=== PATIENT | female | born 1985 | race Caucasian/White ===

== ENCOUNTER 2016-08-20 02:35 | Emergency (ER) | payer SELFPAY ==
[2016-08-20] MEDS ORDERED: methylPREDNISolone NA SUCC 125 MG/2 ML VIAL IVPB ONE (02:57)
[2016-08-20] MEDS ORDERED: ALBUTEROL SO4 2.5/IPRATROPIUM 0.5 INH SOL 3 ML VIAL.NEB. NEB ONE ×2 (02:57→03:20)
[2016-08-20] MEDS ORDERED: SODIUM CHLORIDE 1,000 ML IV STA (02:57)
[2016-08-20] MEDS ORDERED: FAMOTIDINE 20 MG/50 ML IVPB 50 ML IVPB ONE ×2 (02:58→03:20)
--- NOTE | 2016-08-20 03:04 | PDOC ---
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 states symptoms worse at night. 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 Patient c/o chest tightness and trouble breathing. She denies any other complaints. Report no OTC medications use. Associated blood tinge sputum. LNMP: 3 weeks ago. Timing/Duration: reports: getting worse Severity: reports: moderate Episode Description: See HPI Possible Cause: Yes: allergen exposure, illness exposure Modifying Factors: worse with: activity, albuterol inhaler, albuterol nebulizer , antibiotics, coughing, lying down, oxygen, rest, other Associated Symptoms: reports: cough, shortness of breath, wheezing. denies: denies symptoms, chest pain/soreness, dizziness, earache, facial pain, fever/ chills, headache, lightheadedness, muscle aches, nasal congestion, nasal drainage, sinus infection, sore throat, other Past History - Travel Traveled outside of the country in the last 30 days: No Close contact w/someone who was outside of country & ill: No - Past Medical History Allergies/Adverse Reactions: Allergies Allergy/AdvReac Type Severity Reaction Status Date / Time peanut Allergy Verified 05/18/15 14:20 Home Medications: Ambulatory Orders Vit/Iron Fumarate/FA [ Tablet] 1 each PO DAILY 02/06/14 Amoxicillin/Potassium Clav [Augmentin 500-125 Tablet] 1 each PO Q12H #10 tablet 08/20/16 Prednisone 10 mg PO ASDIR #21 tab.ds.pk 08/20/16 - Surgical History Cholecystectomy: Yes - Reproductive History (#): 1 Para: 0 Cervical CA: No Dysfunctional Uterine Bleeding: No Ectopic : No Endometrial CA: No Polycystic Ovaries: No Tubal Ligation: No - Psycho/Social/Smoking Cessation Hx Anxiety: No Suicidal Ideation: No Smoking History: Never smoked Have you smoked in the past 12 months: No Hx Alcohol Use: No Drug/Substance Use Hx: No Substance Use Type: None Respiratory Specific PMHX - Complaint Specific PMHX Angina: No Bronchitis: No Pneumonia: No Pulmonary Embolus: No TB (Tuberculosis): No Review of Systems - Review of Systems Able to Perform ROS?: Yes Is the patient limited Greek proficient: No Constitutional: No: Chills, Fever HEENTM: No: Nose Congestion, Throat Pain Respiratory: Yes: Cough, Shortness of Breath, Wheezing. No: Stridor Cardiac (ROS): Yes: Chest Tightness. No: Chest Pain, Lightheadedness, Palpitations, Syncope ABD/GI: No: Diarrhea, Nausea, Poor Appetite, Poor Fluid Intake, Vomiting : No: Burning, Dysuria, Discharge, Flank Pain, Hematuria Musculoskeletal: No: Back Pain Integumentary: No: Bruising, Dryness, Erythema Neurological: No: Headache All Other Systems: Reviewed and Negative *Physical Exam - Physical Exam General Appearance: Yes: Nourished, Appropriately Dressed, Mild Distress. No: Apparent Distress, Moderate Distress, Severe Distress HEENT: positive: EOMI, CEM, Normal ENT Inspection, Normal Voice, Symmetrical, TMs Normal, Pharynx Normal. negative: Pharyngeal Erythema, Tonsillar Exudate, Tonsillar Erythema, Rhinorrhea, Sinus Tenderness, TM Bulging, TM Dull, TM Erythema Neck: positive: Trachea midline, Supple. negative: Stridor, Lymphadenopathy (R) , Lymphadenopathy (L) Respiratory/Chest: positive: Wheezing. negative: Lungs Clear, Normal Breath Sounds, Respiratory Distress, Accessory Muscle Use, Labored Respiration Cardiovascular: positive: Regular Rhythm, Regular Rate Gastrointestinal/Abdominal: positive: Normal Bowel Sounds, Soft. negative: Distended, Guarding, Rebound, Tenderness Musculoskeletal: positive: Normal Inspection. negative: CVA Tenderness Extremity: positive: Normal Capillary Refill, Normal Inspection, Normal Range of Motion. 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 intact, Fully Oriented, Alert, Normal Mood/ Affect, Normal Response, Motor Strength /5 ED Treatment Course - LABORATORY CBC & Chemistry Diagram: 08/20/16 03:15 08/20/16 03:15 - RADIOLOGY Radiology Studies Ordered: Category Date Time Status CHEST PA & LAT [RAD] Stat Radiology 08/20/16 02:57 Ordered *DC/Admit/Observation/Transfer Diagnosis at time of Disposition: Bronchitis Upper respiratory infection Qualifiers: URI type: unspecified URI Qualified Code(s): J06.9 - Acute upper respiratory infection, unspecified - Discharge Dispostion Disposition: HOME Condition at time of disposition: Improved Admit: No - Prescriptions Prescriptions: Amoxicillin/Potassium Clav [Augmentin 500-125 Tablet] 1 each PO Q12H #10 tablet Prednisone 10 mg PO ASDIR #21 tab.ds.pk - Patient Instructions Printed Discharge Instructions: DI for Viral Upper Respiratory Infection -- Adult, Acute Bronchitis Additional Instructions: FOLLOW UP WITH YOUR DOCTOR NEEDED. CALL TO SCHEDULE APPOINTMENT. TAKE MEDICATIONS PRESCRIBED. RETURN IF SYMPTOMS WORSEN OR ANY CONCERNS FOR FURTHER EVALUATION. Print Language: TURKISH - Post Discharge Activity Work/School Note: Back to Work
[2016-08-20] MEDS ORDERED: methylPREDNISolone NA SUCC 125 MG/2 ML VIAL ONE (03:20)
[2016-08-20 03:24] LABS: BASOPHIL 1.2 % (0-2.0); EOSINOPHIL 13.6 % (0-4.5); MCH 26.3 pg (25.7-33.7); MEAN CELL VOLUME 79.6 fl (80-96); MEAN PLT VOLUME 8.2 fl (7.5-11.1); NEUTROPHILS 42.2 % (42.8-82.8); PLATELET COUNT 311 K/MM3 (134-434); RDW 13.3 % (11.6-15.6); WHITE BLOOD COUNT 10.5 K/mm3 (4.0-10.0)
[2016-08-20 03:45] LABS: ALBUMIN 3.8 g/dl (3.4-5.0); ANION GAP 8 (8-16); BILIRUBIN,TOTAL 0.3 mg/dL (0.2-1.0); CALCIUM 8.6 mg/dL (8.5-10.1); CO2 27 mmol/L (21-32); CREATININE 0.7 mg/dL (0.55-1.02); GLUCOSE,RANDOM 109 mg/dL (74-106); SGOT/AST 20 U/L (15-37); SGPT/ALT 30 U/L (12-78); TOT PROT 7.2 g/dl (6.4-8.2)
[2016-08-20 03:46] VITALS: BMI 50.5
[2016-08-20 03:48] LABS: ALK PHOS 118 U/L (45-117); TROPONIN I < 0.02 ng/ml (0.00-0.05)
[2016-08-20 03:49] LABS: COCKROFT - GAULT 206.5415
[2016-08-20 04:28] LABS: URINE APPEARANCE CLEAR; URINE BILIRUBIN NEGATIVE (NEGATIVE); URINE BLOOD NEGATIVE (NEGATIVE); URINE COLOR COLORLESS; URINE GLUCOSE (UA) NEGATIVE (NEGATIVE); URINE KETONE NEGATIVE (NEGATIVE); URINE LEUK ESTERASE NEGATIVE (NEGATIVE); URINE NITRITE NEGATIVE (NEGATIVE); URINE PROTEIN NEGATIVE (NEGATIVE); URINE UROBILINOGEN NEGATIVE E.U./dl (0.2-1.0)
[2016-08-20] MEDS ORDERED: AMOX TR/POT CLAV 500MG/125MG TABLETS (FP) PO ONE (07:07)
[2016-08-20 07:11] VITALS: BP 109/68; PULSE 92; TEMP 98.3
[2016-08-20] MEDS ORDERED: AMOX TR/POT CLAV 500MG/125MG TABLETS (FP) ONE (07:21)
--- NOTE | 2016-08-20 10:42 | EKG ---
Test Reason : Blood Pressure : / mmHG Vent. Rate : 080 BPM Atrial Rate : 080 BPM P-R Int : 162 ms QRS Dur : 090 ms QT Int : 394 ms P-R-T Axes : 033 014 018 degrees QTc Int : 454 ms NORMAL SINUS RHYTHM NORMAL ECG NO PREVIOUS ECGS AVAILABLE Confirmed by MD GIO, WILDER ([id number]) on 08/20/2016 10:42:11 AM Referred By: Confirmed By:WILDER POWERS MD
== END 2016-08-20 07:45 | disposition home or self-care (01) ==
LOC: JER 02:35
PROC: 3E0F7GC Introduction of Other Therapeutic Substance into Respiratory Tract, Via Natural or Artificial Opening (ICD-10-PCS; principal; 2016-08-20)
PROC: 3E0337Z Introduction of Electrolytic and Water Balance Substance into Peripheral Vein, Percutaneous Approach (ICD-10-PCS; 2016-08-20)
PROC: 3E033GC Introduction of Other Therapeutic Substance into Peripheral Vein, Percutaneous Approach (ICD-10-PCS; 2016-08-20)
PROC: 3E0233Z Introduction of Anti-inflammatory into Muscle, Percutaneous Approach (ICD-10-PCS; 2016-08-20)
DX: J40 Bronchitis, not specified as acute or chronic (principal); J06.9 Acute upper respiratory infection, unspecified
CPT/HCPCS: 36415; 71020-TC; 80053; 81003; 82550; 84484; 84703; 85025; 85379; 93005; 93010; 99283-25

== ENCOUNTER 2020-01-09 10:59 | Emergency (ER) | payer OTHER ==
[2020-01-09 11:12] VITALS: BMI 46.4
--- NOTE | 2020-01-09 11:27 | PDOC ---
Attending Attestation - Resident Resident Name: Meena Montano - ED Attending Attestation I have performed the following: I have examined & evaluated the patient, The case was reviewed & discussed with the resident, I agree w/resident's findings & plan, Exceptions are as noted
[2020-01-09] MEDS ORDERED: FAMOTIDINE 20 MG/50 ML IVPB 20 MG in PREMIX 50 IVPB ONE (11:28)
[2020-01-09] MEDS ORDERED: MAG HYDROX/AL HYDROX/SIMETH -MYLANTA- ORAL SUSPENSION PO ONE (11:28)
--- NOTE | 2020-01-09 11:33 | PDOC ---
History of Present Illness - General Chief Complaint: Nausea/Vomiting Stated Complaint: ABD PAIN/VOMITING Time Seen by Provider: 01/09/20 11:18 History Source: Patient Exam Limitations: No Limitations - History of Present Illness Travel History: No Initial Comments: 01/09/20 11:33 34y F no pmhx presents with complaint of abd pain. Pain started last night primarily in the L lower back, was associated with multiple episodes of vomiting that was yellow/clear, sometimes streaked with blood in nature. She also had 3 episodes of watery stool. She describes the pain is pressure in nature in the L back and is non radiating initially. The pt notes the pain then started to radiate to the epgiastrium and was burning in nature. Pt states she had a burning epigastric pain 8 years ago, but never had the L flank pain before. She has not taken any medications for the pain. She deneies any fever/chills, melena, bpr, cp, sob, hillman, worsening of the pain with exertion, diaphoresis. Social: denies smoking, ivdu, etoh abuse Surgical hx: sp cholecystectomy Past History - Medical History Allergies/Adverse Reactions: Allergies Allergy/AdvReac Type Severity Reaction Status Date / Time peanut Allergy Verified 01/09/20 11:06 Home Medications: Ambulatory Orders Famotidine 20 mg PO DAILY PRN #10 tablet 01/09/20 COPD: No - Surgical History Cholecystectomy: Yes - Reproductive History Is Patient Now?: No (#): 1 Para: 0 Cervical CA: No Dysfunctional Uterine Bleeding: No Ectopic : No Endometrial CA: No Polycystic Ovaries: No Tubal Ligation: No - Psycho-Social/Smoking History Smoking History: Never smoked Have you smoked in the past 12 months: No - Substance Abuse Hx (Audit-C & DAST Scrn) How often the patient has a drink containing alcohol: Monthly or less Number of drinks the patient has on a typical day: 1 or 2 How often the patient has six or more drinks on one occasion: Never Score: In Men: 4 or > Positive; In Women: 3 or > Positive: 1 Screen Result (Pos requires Nsg. Audit-10AR): Negative In the last yr the pt used illegal drug/Rx for NonMed reason: No Score: Yes response is considered Positive: 0 Screen Result (Positive result requires Nsg. DAST-10): Negative Review of Systems - Review of Systems Able to Perform ROS?: Yes Comments:: 01/09/20 11:39 ROS Constitutional - no reported Fever, Chills, HEENT: no reported vision changes, sore throat Respiratory: no reported cough, sob, hemoptysis Cardiac: no reported chest pain, palpitations, light headedness, leg swelling Abd/GI: no reported abd pain, nausea, vomiting, blood per rectum, melena, diarrhea : no reported dysuria, frequency, discharge Musculskelatal - no reported back pain, joint swelling skin - no reported bruising, erythema, rash neurological: no reported headache, numbness, focal weakness, tingling, ataxia, hematologic: no reported easy bruising, easy bleeding *Physical Exam - Vital Signs Last Vital Signs Temp Pulse Resp BP Pulse Ox 98.7 F 73 18 152/90 100 01/09/20 11:06 01/09/20 11:06 01/09/20 11:06 01/09/20 11:06 01/09/20 11:06 - Physical Exam 01/09/20 11:39 Physicial Exam: GENERAL: The patient is awake, alert, and fully oriented, Nontoxic - in no acute distress. HEAD: Normocephalic, atraumatic. EYES: extraocular movements intact, sclera anicteric, conjunctiva clear. ENT: Normal voice, Moist mucous membranes. NECK: Normal range of motion, supple LUNGS: Breath sounds equal, clear to auscultation bilaterally. No wheezes, no rhonchi, no rales. HEART: Regular rate and rhythm, normal S1 and S2 without murmur, rub or gallop. ABDOMEN: Soft, minimal epigastric tenderness, No guarding, no rebound. No CVA tenderness, neg murphies, neg tenderness at mcburnys point EXTREMITIES: Normal range of motion, no edema. NEUROLOGICAL: No facial assymetry, Normal speech, PSYCH: Normal mood, normal affect. SKIN: Warm, Dry, normal turgor, Heart Score/ECG Review - ECG Impressions Comment:: 01/09/20 12:32 Twelve-lead EKG was performed and reviewed by me. There is normal sinus rhythm with a normal rate. rate of 74 The axis is normal. The intervals are normal. There is normal R wave progression There are no ST or T wave abnormalities. Impression: Normal twelve-lead EKG ED Treatment Course - LABORATORY CBC & Chemistry Diagram: 01/09/20 11:30 01/09/20 11:30 Medical Decision Making - Medical Decision Making 01/09/20 11:39 ddx inculdes but not limited to gastritis, kidney stone, pancreatitis, ?consider diverticultis however pt without any tenderness will give pepcid/maalox, will ck labs, ua will reassess 01/09/20 13:43 pts labs reviewed noted for leukocytosis, rest of labs reviewed UA without signs of infection The patient was reassessed and is feeling significantly improved. no abd pain/flank pain. abd reassessed and was soft notnender. will po challenge and reasesss suspect likely gastriitsi - said she ate a large meal of rice/potatoes/meat late last night around 11. 01/09/20 14:19 pt feels improved currently asymptmoatic, tolerated oral intake without return of sypmtoms will give pt antacid will have her fu with PMD return precautiosn were discsused for return of symptoms. I discussed the physical exam findings, ancillary test results and final diagnoses with the patient. I answered all of the patient's questions. The patient was satisfied with the care received and felt comfortable with the di scharge plan and treatment plan. The patient will call their primary care physician within 24 hours to arrange follow-up and will return to the Emergency Department with any new, persistent or worsening symptoms. Discharge - Discharge Information Problems reviewed: Yes Clinical Impression/Diagnosis: Gastritis Qualifiers: Gastritis type: unspecified gastritis Chronicity: acute Gastritis bleeding: without bleeding Qualified Code(s): K29.00 - Acute gastritis without bleeding Condition: Improved Disposition: HOME - Admission No - Follow up/Referral Referrals: Neal Giron [Primary Care Provider] - - Patient Discharge Instructions Patient Printed Discharge Instructions: DI for Gastritis Additional Instructions: Regrese a la gabi de emergencias de inmediato con CUALQUIER sntoma nuevo, persistente o que empeore, incluido cualquier dolor abdominal recurrente, fiebre, escalofros, incapacidad para tolerar la ingesta oral o cualquier otra inquietud. Mantngase alejado del alcohol, los alimentos picantes, la cafena, los alimentos cidos / cidos. [place] maalox si siente ardor para aliviarlo. Contine usando Pepcid cuando tiene simptomas DEBE llamar y hacer un seguimiento con abraham mdico y gastroenterlogo dentro de los 5 potter para camille evaluacin adicional de mary ann sntomas. Abraham visita al departamento de emergencias no est completa sin un seguimiento con abraham mdico para camille reevaluacin. Los resultados se discutieron con usted. Asegrese de que abraham mdico revise los resultados de abraham evaluacin de emergencia. Return to the emergency department immediately with ANY new, persistent or wor sening symptoms including any recurrent abdominal pain, fevers, chills, inability to tolerate oral intake or any other concerns. Stay away from alcohol, spicy foods, caffeine, acidic/sour foods. Take maalox if you have burning for relief. 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 Your emergency department visit is not complete without a followup with your doctor for reevaluation. Results were discussed with you. Please make sure your doctor reviews the results of your emergency evaluation. - Post Discharge Activity
[2020-01-09] MEDS ORDERED: SODIUM CHLORIDE 1,000 ML IV ONE (11:43)
[2020-01-09] MEDS ORDERED: ONDANSETRON 4 MG/2 ML VIAL IVPB ONE (11:43)
[2020-01-09] MEDS ORDERED: MAG HYDROX/AL HYDROX/SIMETH 30 ML UNIT-DOSE CUP ONE (11:44)
[2020-01-09] MEDS ORDERED: FAMOTIDINE 20 MG/50 ML IVPB 20 MG/50 ML MG IVPB ONE (11:44)
--- OUTSIDE RECORDS SUMMARY | 2020-01-09 11:44 | XMS ---
:1985 Author [facility] Support Name Relationship Address Phone SE Unavailable Unavailable Unavailable LUCILLE SERRANO [address] [place] [address] ALLAN WELLER MOTHER [address] [phone] [place] [address] FILOMENA WELLER Unavailable [address] [facility] [place] [address] Re-disclosure Warning The records that you are about to access may contain information from federally- assisted alcohol or drug abuse programs. If such information is present, then the following federally mandated warning applies: This information has been disclosed to you from records protected by federal confidentiality rules (42 CFR part 2). The federal rules prohibit you from making any further disclosure of this information unless further disclosure is expressly permitted by the written consent of the person to whom it pertains or as otherwise permitted by 42 CFR part 2. A general authorization for the release of medical or other information is NOT sufficient for this purpose. The Federal rules restrict any use of the information to criminally investigate or prosecute any alcohol or drug abuse patient.The records that you are about to access may contain highly sensitive health information, the redisclosure of which is protected by Article 27-F of the [facility] Public Health law. If you continue you may haveaccess to information: Regarding HIV / AIDS; Provided by facilities licensed or operated by the [facility] Office of Mental Health; or Provided by the [facility] Office for People With Developmental Disabilities. If such information is present, then the following [facility] mandated warning applies: This information has been disclosed to you from confidential records which are protected by state law. State law prohibits you from making any further disclosure of this information without the specific written consent of the person to whom it pertains, or as otherwise permitted by law. Any unauthorized further disclosure in violation of state law may result in a fine or penitentiary sentence or both. A general authorization for the release of medical or other information is NOT sufficient authorization for further disclosure. Encounters Encounter Providers Location Date Indications Data Source(s ) Outpatient [facility] 11/12/2018 eCW3 ([facility] A28 12:00:00 AM Health Care) EDT - 11/12/2018 12:00:00 AM EDT Insurance Providers Payer name Policy type Policy ID Covered Covered libertarian's Policy P kvng / Coverage libertarian ID relationship to [employer] ormation type [employer] SELF PAY SP INSURANCE Social History Code Duration Value Status Description Data Source(s ) Smoking 11/12/2018 12:00:00 Never Smoker completed Never Smoker e CW3 ([facility]) Smoking 11/12/2018 12:00:00 Never Smoker completed Never Smoker e CW3 ([facility]) Smoking 11/12/2018 12:00:00 Never Smoker completed Never Smoker e CW3 ([facility]) Smoking 11/12/2018 12:00:00 Never Smoker completed Never Smoker e CW3 ([facility]) Smoking 11/12/2018 12:00:00 Never Smoker completed Never Smoker e CW3 ([facility]) Smoking 11/12/2018 12:00:00 Never Smoker completed Never Smoker e CW3 ([facility]) Smoking 11/12/2018 12:00:00 Never Smoker completed Never Smoker e CW3 ([facility]) Smoking 11/12/2018 12:00:00 Never Smoker completed Never Smoker e CW3 ([facility]) Smoking 11/12/2018 12:00:00 Never Smoker completed Never Smoker e CW3 ([facility]) Smoking 11/12/2018 12:00:00 Never Smoker completed Never Smoker e CW3 ([facility]) Smoking 11/12/2018 12:00:00 Never Smoker completed Never Smoker e CW3 ([facility]) Vital Signs ID Date Data Source UNK Name Value Range Interpretation Code Description Data Source(s) Diastolic blood 51 mm[Hg] 51 mm[Hg] eCW3 ([facility]) Systolic blood 105 mm[Hg] 105 mm[Hg] eCW3 ([facility]) Body temperature 97.8 [degF] 97.8 [degF] eCW3 ( [facility]) Heart rate 20 /min 20 /min eCW3 ([facility]) Body mass index 44.94 kg/m2 44.94 kg/m2 eCW3 ( udson (BMI) [Ratio] [facility]) Body weight 234 [lb_av] 234 [lb_av] eCW3 ([facility]) Body height 60.5 [in_i] 60.5 [in_i] eCW3 ([facility])
[2020-01-09 11:52] LABS: BASO % 0.7 % (0-2.0); EOS % 0.3 % (0-4.5); HEMATOCRIT 41.9 % (32.4-45.2); HEMOGLOBIN 14.1 GM/dL (10.7-15.3); LYMPH % 10.9 % (8-40); MCH 27.3 pg (25.7-33.7); MCHC 33.6 g/dl (32.0-36.0); MEAN CELL VOLUME 81.3 fl (80-96); MEAN PLT VOLUME 7.8 fl (7.5-11.1); MONO % 4.5 % (3.8-10.2); NEUT % 83.6 % (42.8-82.8); PLATELET COUNT 343 K/MM3 (134-434); RBC 5.15 M/mm3 (3.60-5.2); RDW 13.1 % (11.6-15.6)
[2020-01-09 12:15] LABS: ALBUMIN 4.2 g/dl (3.4-5.0); BILIRUBIN,TOTAL 0.7 mg/dL (0.2-1); BLOOD UREA NITROGEN 15.4 mg/dL (7-18); CALCIUM 9.2 mg/dL (8.5-10.1); CREATININE 0.8 mg/dL (0.55-1.3)
[2020-01-09] MEDS ORDERED: ACETAMINOPHEN 1000 MG/100 ML VIAL (NON FORMULARY) IVPB ONE (12:53)
[2020-01-09] MEDS ORDERED: METOCLOPRAMIDE HCL INJECTION 10 MG/2 ML VIAL IVPUSH ONE (12:53)
[2020-01-09] MEDS ORDERED: METOCLOPRAMIDE HCL INJECTION 10 MG/2 ML VIAL ONE (12:55)
[2020-01-09] MEDS ORDERED: ACETAMINOPHEN INJECTION 100 ML IVPB ONE (12:56)
[2020-01-09 13:06] LABS: PH,URINE 8.5 (5.0-8.0); URINE APPEARANCE CLOUDY; URINE BILIRUBIN NEGATIVE (NEGATIVE); URINE COLOR YELLOW; URINE GLUCOSE (UA) NEGATIVE (NEGATIVE); URINE KETONE NEGATIVE (NEGATIVE); URINE LEUK ESTERASE NEGATIVE (NEGATIVE); URINE NITRITE NEGATIVE (NEGATIVE); URINE PROTEIN NEGATIVE (NEGATIVE); URINE UROBILINOGEN 0.2 mg/dL (0.2-1.0)
[2020-01-09 13:08] LABS: HCG,QUALITATIVE URINE Negative
[2020-01-09 14:49] VITALS: BP 136/78; PULSE 72; TEMP 98.6
--- NOTE | 2020-01-11 07:07 | EKG ---
Test Reason : Blood Pressure : / mmHG Vent. Rate : 074 BPM Atrial Rate : 074 BPM P-R Int : 170 ms QRS Dur : 082 ms QT Int : 390 ms P-R-T Axes : 012 024 019 degrees QTc Int : 432 ms NORMAL SINUS RHYTHM NORMAL ECG WHEN COMPARED WITH ECG OF 20-AUG-2016 03:23, NO SIGNIFICANT CHANGE WAS FOUND Confirmed by HARLEY BUSBY MD ([id number]) on 01/11/2020 7:07:05 AM Referred By: Confirmed By:HARLEY BUSBY MD
== END 2020-01-09 14:49 | disposition home or self-care (01) ==
LOC: JER 10:59 → SUPCPDRO 10:59 → JER 14:49
PROC: 3E0333Z Introduction of Anti-inflammatory into Peripheral Vein, Percutaneous Approach (ICD-10-PCS; principal; 2020-01-09)
PROC: 3E033GC Introduction of Other Therapeutic Substance into Peripheral Vein, Percutaneous Approach (ICD-10-PCS; 2020-01-09)
PROC: 3E0337Z Introduction of Electrolytic and Water Balance Substance into Peripheral Vein, Percutaneous Approach (ICD-10-PCS; 2020-01-09)
DX: K29.00 Acute gastritis without bleeding (principal)
CPT/HCPCS: 36415; 80053; 81003; 83690; 84703; 85025; 93005; 93010; 99284-25; J0131

== ENCOUNTER 2020-01-10 20:02 | Emergency (ER) | payer OTHER ==
[2020-01-10 20:10] VITALS: BP 157/90; TEMP 98; BMI 52.4
--- OUTSIDE RECORDS SUMMARY | 2020-01-10 20:32 | XMS ---
:1985 Author Organization [facility] Support Name Relationship Address Phone SE, SELF-EMPLOYED Unavailable Unavailable Unavailable SE Unavailable Unavailable Unavailable ZACH, LUCILLE [address] [place] [address] ALLAN WELLER MOTHER [address] [place] [address] ALLAN WELLER Mother [address] [place] [address] FILOMENA WELLER Unavailable [address] [place] [address] Re-disclosure Warning The records that you are [...] is protected by Article 27-F of the [facility] Public Health law. If you continue you may haveaccess to information: Regarding HIV / AIDS; Provided by facilities licensed or operated by the [facility] Office of Mental Health; or Provided by the [facility] Office for People With Developmental Disabilities. If such information is present, then the following [facility] mandated warning applies: This information has been [...] law may result in a fine or fpc sentence or both. A general authorization for the release of medical or other information is NOT sufficient authorization for further disclosure. Encounters Encounter Providers Location Date Indications Data Source(s ) Outpatient [facility] 11/12/2018 eCW3 ([facility] A28 12:00:00 AM Health Care) EDT - 11/12/2018 12:00:00 AM EDT Insurance Providers Payer name Policy type Policy ID Covered Covered democrat's Policy P kvng / Coverage democrat ID relationship to [employer] ormation type mortensen SELF PAY SP INSURANCE Social History Code Duration Value Status Description Data Source(s ) Smoking 11/12/2018 12:00:00 Never Smoker completed Never Smoker e CW3 ([facility]) Smoking 11/12/2018 12:00:00 Never Smoker completed Never Smoker e CW3 ([facility]) Smoking 11/12/2018 12:00:00 Never Smoker completed Never Smoker e CW3 ([facility]) Smoking 11/12/2018 12:00:00 Never Smoker completed Never Smoker e CW3 ([facility]) Smoking 11/12/2018 12:00:00 Never Smoker completed Never Smoker e CW3 ([facility]) Smoking 11/12/2018 12:00:00 Never Smoker completed Never Smoker e CW3 ([facility]) Smoking 11/12/2018 12:00:00 Never Smoker completed Never Smoker e CW3 ([facility]) Smoking 11/12/2018 12:00:00 Never Smoker completed Never Smoker e CW3 ([facility]) Smoking 11/12/2018 12:00:00 Never Smoker completed Never Smoker e CW3 ([facility]) Smoking 11/12/2018 12:00:00 Never Smoker completed Never Smoker e CW3 ([facility]) Smoking 11/12/2018 12:00:00 Never Smoker completed Never Smoker e CW3 ([facility]) Vital Signs ID Date Data Source UNK Name Value Range Interpretation Code Description Data Source(s) Diastolic blood 51 mm[Hg] 51 mm[Hg] eCW3 ([facility]) Systolic blood 105 mm[Hg] 105 mm[Hg] eCW3 ([facility]) Body temperature 97.8 [degF] 97.8 [degF] eCW3 ( [facility]) Heart rate 20 /min 20 /min eCW3 ([facility]) Body mass index 44.94 kg/m2 44.94 kg/m2 eCW3 ([facility] (BMI) [Ratio] [facility]) Body weight 234 [lb_av] 234 [lb_av] eCW3 ([facility]) Body height 60.5 [in_i] 60.5 [in_i] eCW3 ([facility])
--- NOTE | 2020-01-10 20:39 | PDOC ---
History of Present Illness - General History Source: Patient - History of Present Illness Initial Comments: 01/10/20 20:39 34F w/no PMH p/w ongoing N/V abdominal pain, evaluated here for similar symptoms yesterday. She reports 8/10 stabbing L sided flank pain, radiating down towards her LLQ. She denies similar prior episodes. She reports feeling improved yesterday after the medications that she received, but feeling recurrence of pain today alongside multiple episodes nbnb vomiting. She denies any prior urolithiases. She reports chills and cold sweats since yesterday. She denies any fevers, weakness, confusion. <Miller Davis - Last Filed: 01/10/20 23:09> <Sherin Reyes - Last Filed: 01/14/20 09:22> - General Chief Complaint: Pain Stated Complaint: F/UP ABDOMINAL PAIN Time Seen by Provider: 01/10/20 20:35 Past History - Medical History COPD: No GI Disorders: Yes (Gastritis) - Surgical History Cholecystectomy: Yes - Reproductive History Is Patient Now?: No (#): 1 Para: 0 Cervical CA: No Dysfunctional Uterine Bleeding: No Ectopic : No Endometrial CA: No Polycystic Ovaries: No Tubal Ligation: No - Psycho-Social/Smoking History Smoking History: Never smoked Have you smoked in the past 12 months: No - Substance Abuse Hx (Audit-C & DAST Scrn) How often the patient has a drink containing alcohol: Never Score: In Men: 4 or > Positive; In Women: 3 or > Positive: 0 Screen Result (Pos requires Nsg. Audit-10AR): Negative <Miller Davis - Last Filed: 01/10/20 23:09> <Sherin Reyes - Last Filed: 01/14/20 09:22> - Medical History Allergies/Adverse Reactions: Allergies Allergy/AdvReac Type Severity Reaction Status Date / Time peanut Allergy Verified 01/09/20 11:06 Home Medications: Ambulatory Orders Famotidine 20 mg PO DAILY PRN #10 tablet 01/09/20 Ibuprofen [Motrin -] 600 mg PO TID #21 tablet 01/10/20 Tamsulosin HCl [Flomax] 0.4 mg PO DAILY 7 Days #7 cap.er.24h 01/10/20 Review of Systems - Review of Systems Able to Perform ROS?: Yes Comments:: 01/10/20 21:33 GENERAL/CONSTITUTIONAL: Chills. No fever. No weakness. HEAD, EYES, EARS, NOSE AND THROAT: No change in vision. No ear pain or discharge. No sore throat. CARDIOVASCULAR: No chest pain or shortness of breath RESPIRATORY: No cough, wheezing, or hemoptysis. GASTROINTESTINAL: Nausea, vomiting, abdominal pain. No diarrhea or constipation. GENITOURINARY: No dysuria, frequency, or change in urination. MUSCULOSKELETAL: No joint or muscle swelling or pain. No neck or back pain. SKIN: No rash NEUROLOGIC: No headache, vertigo, loss of consciousness, or change in strength/sensation. ENDOCRINE: No increased thirst. No abnormal weight change HEMATOLOGIC/LYMPHATIC: No anemia, easy bleeding, or history of blood clots. ALLERGIC/IMMUNOLOGIC: No hives or skin allergy. <Miller Davis - Last Filed: 01/10/20 23:09> *Physical Exam - Vital Signs Last Vital Signs Temp Pulse Resp BP Pulse Ox 98.0 F 75 20 157/90 97 01/10/20 20:07 01/10/20 20:07 01/10/20 20:07 01/10/20 20:07 01/10/20 20:07 - Physical Exam 01/10/20 21:34 GENERAL: Grimacing. Awake, alert, and fully oriented HEAD: No signs of trauma, normocephalic, atraumatic EYES: PERRLA, EOMI, sclera anicteric, conjunctiva clear ENT: Auricles normal inspection, hearing grossly normal, nares patent, oropharynx clear without exudates. Moist mucosa NECK: Normal ROM, supple, no lymphadenopathy, JVD, or masses LUNGS: No distress, speaks full sentences, clear to auscultation bilaterally HEART: Regular rate and rhythm, normal S1 and S2, no murmurs, rubs or gallops, peripheral pulses normal and equal bilaterally. ABDOMEN: L CVA tenderness. Soft, nontender, normoactive bowel sounds. No guarding, no rebound. No masses EXTREMITIES : Normal inspection, Normal range of motion, no edema. No clubbing or cyanosis NEUROLOGICAL: Cranial nerves II through XII grossly intact. Normal speech, normal gait, no focal sensorimotor deficits SKIN: Warm, Dry, normal turgor, no rashes or lesions noted <SusanMiller - Last Filed: 01/10/20 23:09> - Vital Signs Last Vital Signs Temp Pulse Resp BP Pulse Ox 98.0 F 86 20 157/90 98 01/10/20 20:07 01/11/20 00:01 01/10/20 20:07 01/10/20 20:07 01/11/20 00:01 <Sherin Reyesariela - Last Filed: 01/14/20 09:22> ED Treatment Course - LABORATORY CBC & Chemistry Diagram: 01/10/20 21:24 01/10/20 21:25 <Miller Davis - Last Filed: 01/10/20 23:09> - LABORATORY CBC & Chemistry Diagram: 01/10/20 21:24 01/10/20 21:25 - ADDITIONAL ORDERS Additional order review: 01/10/20 21:24 RBC 4.85 MCV 81.9 MCHC 33.7 RDW 13.3 MPV 8.2 Neutrophils % 66.4 D Lymphocytes % 24.2 D Monocytes % 5.3 Eosinophils % 2.6 D Basophils % 1.5 - Medications Given in the ED: ED Medications Discontinued Medications Generic Name Dose Route Start Last Admin Trade Name Winnie PRN Reason Stop Dose Admin Acetaminophen 650 mg 01/10/20 23:19 01/10/20 23:54 Tylenol - PO 01/10/20 23:20 650 mg ONCE ONE Administration Famotidine/Sodium Chloride 20 mg in 50 mls @ 100 mls/hr 01/10/20 20:57 01/10/20 21:57 Pepcid 20 Mg Premixed Ivpb - IVPB 01/10/20 21:26 100 mls/hr ONCE ONE Administration Ketorolac Tromethamine 15 mg 01/10/20 20:57 01/10/20 21:57 Toradol Injection - IVPUSH 01/10/20 20:58 15 mg ONCE ONE Administration Lactated Ringer's 1,000 ml 01/10/20 20:57 01/10/20 21:57 Lactated Ringers Solution IV 01/10/20 20:58 1,000 ml NOW ONE Administration Ondansetron HCl 4 mg 01/10/20 20:57 01/10/20 21:58 Zofran Injection IVPB 01/10/20 20:58 4 mg ONCE ONE Administration <Sherin Reyes - Last Filed: 01/14/20 09:22> Medical Decision Making - Medical Decision Making 01/10/20 21:34 34F w/no PMH p/w acute onset N/V/Flank pain w/L CVA tenderness. Ddx urolithiasis, given stabbing flank pain, nausea, vomiting. Gastritis possible given resolution with medication yesterday, although recurrence of similar symptoms may suggest other etiology. Plan: CBC CMP Lipase UA Urine culture POCUS Renal US 1L LR Zofran Pepcid Spiral CT pending POCUS Dispo: Pending labs, imaging --- POCUS Renal - notable for L sided hydronephrosis Plan for spiral CT to eval for urolithiasis <Miller Davis - Last Filed: 01/10/20 23:09> Discharge - Discharge Information Problems reviewed: Yes - Admission No <Miller Davis - Last Filed: 01/10/20 23:09> - Discharge Information Problems reviewed: Yes <Sherin Reyes - Last Filed: 01/14/20 09:22> - Discharge Information Clinical Impression/Diagnosis: Kidney stone Condition: Stable Disposition: HOME - Additional Discharge Information Prescriptions: Tamsulosin HCl [Flomax] 0.4 mg PO DAILY 7 Days #7 cap.er.24h Ibuprofen [Motrin -] 600 mg PO TID #21 tablet - Follow up/Referral Referrals: Jason Heck MD [Staff Physician] - Gene Monreal MD [Non Staff, Medical] - Pj Levin MD [Staff Physician] - - Patient Discharge Instructions Patient Printed Discharge Instructions: DI for Kidney Stones Additional Instructions: Your CT results were significant for obstructed stones and swelling of collecting system, Drink plenty of water/fluids, avoid caffeine or alcohol Strain all urine for the next 1-2 days and save any stone for analysis Ibuprofen/naproxen/acetaminophen as needed for fund-ul-hlykgnbd pain. Use Motrin (also called Ibuprofen or Advil) 400 mg every 6 hours as needed for pain. If you have any stomach discomfort while taking Motrin, you can use TUMS to help. Oxycodone every 6 hours as needed for severe pain; Please do not drive or operate heavy machinery while on this medication because it can impair your judgement. This is a very addictive medication, do not take it unless you absolutely have to. Return to ER if you experience persistent pain/vomiting/fever/dehydration, difficulty urinating or inability to tolerate oral intake. Follow-up with your primary doctor within the next 2-3 days. Urologist follow up this week, referral given as well. (we will give you a list of urologists, but make sure they accept your insurance). Please bring your labs and imaging with you to your appointment. Print Language: FAROESE
[2020-01-10] MEDS ORDERED: LACTATED RINGERS SOLUTION 1000 ML INFUS.BAG IV ONE (20:57)
[2020-01-10] MEDS ORDERED: ONDANSETRON 4 MG/2 ML VIAL IVPB ONE (20:57)
[2020-01-10] MEDS ORDERED: FAMOTIDINE 20 MG/50 ML IVPB 20 MG/50 ML MG IVPB ONE ×2 (20:57→21:39)
[2020-01-10] MEDS ORDERED: KETOROLAC TROMETHAMINE 15 MG/ML VIAL IVPUSH ONE (20:57)
--- NOTE | 2020-01-10 21:29 | PDOC ---
Attending Attestation - Resident Resident Name: Miller Davis - ED Attending Attestation I have performed the following: I have examined & evaluated the patient, The case was reviewed & discussed with the resident, I agree w/resident's findings & plan - HPI HPI: 01/10/20 21:30 34-year-old female with no medical history presenting with left flank pain, persistent nausea and vomiting. Patient was seen yesterday in the ED here for similar episodes where she had nausea and vomiting with clear/yellow emesis, watery stools and left-sided back pain. Her blood work here was within normal limits including her LFTs. She did have a white count of 14 K. Urinalysis was clear, negative test. She was presumed to have gastritis and told to continue with supportive management, given that she had a large meal of rice potatoes and meat the previous night. Told to return if any worsening symptoms. - Physicial Exam PE: 01/10/20 21:28 Agree with the resident's HPI and PE as documented in the electronic medical record. NAD, well appearing, EOMI, PERRL, nl conjunctiva, anicteric; neck supple. lungs clear, RRR, abdomen soft obese, left flank tenderness, left CVA tenderness. no rebound, guarding. LWEIS x4, no focal neuro deficits. No peripheral edema. normal color for ethnicity, WWP. - Medical Decision Making 01/10/20 21:28 Vital Signs Temp Pulse Resp BP Pulse Ox 98.0 F 75 20 157/90 97 01/10/20 20:07 01/10/20 20:07 01/10/20 20:07 01/10/20 20:07 01/10/20 20:07 01/10/20 21:28 DDx abdominal pain: Renal colic, biliary colic, metabolic/electrolyte derangements. GERD, PUD, esophageal spasm, pancreatitis, hepatitis, constipation, colitis, gastroenteritis, cholecystitis, UTI, pyelonephritis, ileus, SBO, medication side effect, hernia, appendicitis, diverticulitis, mesenteric ischemia. msk strain, mesenteric adenitis, psoas abscess. Vital signs here within normal limits. Patient was seen in the ED yesterday for similar symptoms, now with persistent nausea and vomiting and left-sided back/flank pain. No fevers no chills no systemic symptoms We will repeat labs given she had a leukocytosis of 14 K. She had clear urine yesterday we will recheck. No evidence of as it was negative yesterday Repeat CBC chemistry LFTs and lipase. We will give analgesia Pocus renal exam was done, left hydro-was noted otherwise no acute pathology. Will do CT spiral to evaluate for first-time kidney stone and alternative intra- abdominal pathology. Clinically the patient presents with symptomatic ureterolithiasis (kidney stones). IV pain medications, antiemetics, and IV fluids were given. A CT Abdomen/Pelvis was obtained for concern for a possible obstructing kidney stone and to rule out other pathologic conditions. The CT confirmed revealed a stone at left UVJ, measuring 7mm. The patient's labs were WNL. With pain medication the patient improved significantly. The patient is referred to the on-call urologist for follow up and is discharged with otc analgesia, Flomax, antiemetics, and given the following return precautions: Fever > 100.5, pain not controlled with narcotics, worsening pain, dehydration, vomiting or any other concerns and to strain the urine. NSAIDS/tylenol for mild to moderate pain. zofran for nausea, adequate hydration and oral fluids and air conditioning in hot weather.flomax given large stone 7mm. urine strainer to catch urine. 01/10/20 21:30 01/10/20 23:22 01/10/20 23:22 Discharge - Discharge Information Problems reviewed: Yes Clinical Impression/Diagnosis: Kidney stone Condition: Stable Disposition: HOME - Admission No - Additional Discharge Information Prescriptions: Tamsulosin HCl [Flomax] 0.4 mg PO DAILY 7 Days #7 cap.er.24h Ibuprofen [Motrin -] 600 mg PO TID #21 tablet - Follow up/Referral Referrals: Gene Monreal MD [Non Staff, Medical] - Pj Levin MD [Staff Physician] - Jason Heck MD [Staff Physician] - - Patient Discharge Instructions Patient Printed Discharge Instructions: DI for Kidney Stones Additional Instructions: Your CT results were significant for obstructed stones and swelling of collecting system, Drink plenty of water/fluids, avoid caffeine or alcohol Strain all urine for the next 1-2 days and save any stone for analysis Ibuprofen/naproxen/acetaminophen as needed for vubq-cw-kssdryam pain. Use Motrin (also called Ibuprofen or Advil) 400 mg every 6 hours as needed for pain. If you have any stomach discomfort while taking Motrin, you can use TUMS to help. Oxycodone every 6 hours as needed for severe pain; Please do not drive or operate heavy machinery while on this medication because it can impair your judgement. This is a very addictive medication, do not take it unless you absolutely have to. Return to ER if you experience persistent pain/vomiting/fever/dehydration, diff iculty urinating or inability to tolerate oral intake. Follow-up with your primary doctor within the next 2-3 days. Urologist follow up this week, referral given as well. (we will give you a list of urologists, but make sure they accept your insurance). Please bring your labs and imaging with you to your appointment. Print Language: BELARUSIAN - Post Discharge Activity
[2020-01-10 21:35] LABS: BASO % 1.5 % (0-2.0); EOS % 2.6 % (0-4.5); HEMATOCRIT 39.7 % (32.4-45.2); HEMOGLOBIN 13.4 GM/dL (10.7-15.3); LYMPH % 24.2 % (8-40); MCH 27.6 pg (25.7-33.7); MCHC 33.7 g/dl (32.0-36.0); MEAN CELL VOLUME 81.9 fl (80-96); MEAN PLT VOLUME 8.2 fl (7.5-11.1); MONO % 5.3 % (3.8-10.2); NEUT % 66.4 % (42.8-82.8); PLATELET COUNT 341 K/MM3 (134-434); RBC 4.85 M/mm3 (3.60-5.2); RDW 13.3 % (11.6-15.6); WHITE BLOOD COUNT 9.8 K/mm3 (4.0-10.0)
[2020-01-10] MEDS ORDERED: KETOROLAC TROMETHAMINE 15 MG/ML VIAL ONE (21:39)
[2020-01-10 22:06] LABS: ALBUMIN 3.9 g/dl (3.4-5.0); BILIRUBIN,TOTAL 0.5 mg/dL (0.2-1); CALCIUM 8.8 mg/dL (8.5-10.1); CREATININE 0.8 mg/dL (0.55-1.3); POTASSIUM 4.4 mmol/L (3.5-5.1); TOT PROT 7.6 g/dl (6.4-8.2)
[2020-01-10 22:32] LABS: EPI CELLS >36 /uL (0-25.1); HYALINE CASTS 2 /uL (0-3.1); PH,URINE 6.5 (5.0-8.0); URINE APPEARANCE CLEAR; URINE BACTERIA 1214 /uL (0-1359); URINE BILIRUBIN NEGATIVE (NEGATIVE); URINE COLOR YELLOW; URINE GLUCOSE (UA) NEGATIVE (NEGATIVE); URINE KETONE NEGATIVE (NEGATIVE); URINE LEUK ESTERASE 1+ (NEGATIVE); URINE NITRITE NEGATIVE (NEGATIVE); URINE PROTEIN NEGATIVE (NEGATIVE); URINE RBC 24 /uL (0-23.9); URINE UROBILINOGEN 0.2 mg/dL (0.2-1.0); URINE WBC 53 /uL (0-25.8)
[2020-01-10] MEDS ORDERED: ACETAMINOPHEN 325 MG TABLET (FP) PO ONE (23:19)
[2020-01-10] MEDS ORDERED: ACETAMINOPHEN 325 MG TABLET (FP) ONE (23:47)
[2020-01-11 00:03] VITALS: PULSE 86
== END 2020-01-11 00:03 | disposition home or self-care (01) ==
LOC: JER 20:02
PROC: 3E0333Z Introduction of Anti-inflammatory into Peripheral Vein, Percutaneous Approach (ICD-10-PCS; principal; 2020-01-10)
PROC: 3E033GC Introduction of Other Therapeutic Substance into Peripheral Vein, Percutaneous Approach (ICD-10-PCS; 2020-01-10)
DX: N20.0 Calculus of kidney (principal)
CPT/HCPCS: 36415; 74176-TC; 76775; 80053; 81003; 83690; 85025; 99284-25

== ENCOUNTER 2022-12-05 02:59 | Emergency (ER) | payer OTHER ==
[2022-12-05 03:17] VITALS: TEMP 98.8; BMI 47.6
[2022-12-05] MEDS ORDERED: ONDANSETRON 4 MG/2 ML VIAL IVPUSH ONE (03:24)
[2022-12-05] MEDS ORDERED: ACETAMINOPHEN 1000 MG/100 ML BAG IVPB ONE (03:24)
[2022-12-05] MEDS ORDERED: SODIUM CHLORIDE 0.9% 500 ML INFUS.BAG IV ONE (03:24)
[2022-12-05] MEDS ORDERED: ACETAMINOPHEN INJECTION 100 ML IVPB ONE (03:52)
[2022-12-05] MEDS ORDERED: ONDANSETRON 4 MG/2 ML VIAL ONE (03:52)
[2022-12-05 04:22] LABS: BASO % 0.7 % (0-2.0); EOS % 3.8 % (0-4.5); HEMATOCRIT 41.5 % (32.4-45.2); HEMOGLOBIN 14.1 GM/dL (10.7-15.3); LYMPH % 22.7 % (8-40); MCH 26.6 pg (25.7-33.7); MEAN CELL VOLUME 78.4 fl (80-96); MEAN PLT VOLUME 8.4 fl (7.5-11.1); MONO % 6.8 % (3.8-10.2); PLATELET COUNT 299 10^3/uL (134-434); RBC 5.29 M/mm3 (3.60-5.2); RDW 13.9 % (11.6-15.6); WHITE BLOOD COUNT 10.4 K/mm3 (4.0-10.0)
[2022-12-05 04:30] LABS: POTASSIUM 4.2 mmol/L (3.5-5.1)
[2022-12-05 04:32] LABS: ALBUMIN 3.6 g/dl (3.4-5.0); CALCIUM 8.5 mg/dL (8.5-10.1)
[2022-12-05 04:33] LABS: BLOOD UREA NITROGEN 9.8 mg/dL (7-18)
[2022-12-05 04:35] LABS: CREATININE 0.7 mg/dL (0.55-1.3)
[2022-12-05 04:37] LABS: BILIRUBIN,TOTAL 0.7 mg/dL (0.2-1); TOT PROT 7.2 g/dl (6.4-8.2)
[2022-12-05 05:45] LABS: EPI CELLS 24 /uL (0-25.1); HYALINE CASTS 0 /uL (0-3.1); URINE APPEARANCE CLEAR; URINE BACTERIA 3493 /uL (0-1359); URINE BILIRUBIN NEGATIVE (NEGATIVE); URINE COLOR YELLOW; URINE GLUCOSE (UA) 3+ (NEGATIVE); URINE KETONE NEGATIVE (NEGATIVE); URINE LEUK ESTERASE 1+ (NEGATIVE); URINE NITRITE NEGATIVE (NEGATIVE); URINE PROTEIN NEGATIVE (NEGATIVE); URINE RBC 29 /uL (0-23.9); URINE WBC 223 /uL (0-25.8)
[2022-12-05] MEDS ORDERED: CEFTRIAXONE 1 GM in DEXTROSE 5%-WATER - 100 ML IVPB ONE (06:12)
[2022-12-05 06:36] VITALS: BP 105/55; PULSE 74; RESP 17
[2022-12-05] MEDS ORDERED: CIPROFLOXACIN 500 MG TABLET (RESTRICTED TO ID) PO ONE (06:39)
[2022-12-05] MEDS ORDERED: metroNIDAZOLE 250 MG TABLET PO ONE (06:39)
[2022-12-05] MEDS ORDERED: metroNIDAZOLE 250 MG TABLET ONE (07:21)
== END 2022-12-05 07:37 | disposition home or self-care (01) ==
LOC: JER 02:59
PROC: 3E033NZ Introduction of Analgesics, Hypnotics, Sedatives into Peripheral Vein, Percutaneous Approach (ICD-10-PCS; principal; 2022-12-05)
PROC: 3E033GC Introduction of Other Therapeutic Substance into Peripheral Vein, Percutaneous Approach (ICD-10-PCS; 2022-12-05)
DX: R10.32 Left lower quadrant pain (principal); R11.0 Nausea; R30.0 Dysuria; R68.83 Chills (without fever); N39.0 Urinary tract infection, site not specified; K57.92 Diverticulitis of intestine, part unspecified, without perforation or abscess without bleeding
CPT/HCPCS: 36415; 74176-TC; 80053; 81003; 83690; 84703; 85025; 87077; 87086; 96374; 96375; 99284-25